=== PATIENT | female | born 1960 | race Caucasian/White ===

== ENCOUNTER 2018-11-27 13:13 | Day surgery (SDC) | payer OTHER ==
[~2018-11-27] VITALS: Ht 162.6 cm; Wt 82.5 kg
[~2018-11-27 13:13] MED LIST: AMLO5; ASPI81CH; Evening Primro500 M1 PO; FLAX SEED OIL1000 MG PO; Ginkgo Biloba120 MG PO; LEVSOD125; LEVSOD125 PO; LISI5; LISI5 PO; LO-DOSE ASPIRIN81 MG PO; Norvasc2.5 MG PO
== END 2018-11-27 16:00 | disposition home or self-care (01) ==
LOC: ORSCSDS 13:13
PROVIDERS: Internal Medicine Gastroenterology
PROC: 0DJD8ZZ Inspection of Lower Intestinal Tract, Via Natural or Artificial Opening Endoscopic (ICD-10-PCS; principal; 2018-11-27 15:15)
DX: Z12.11 Encounter for screening for malignant neoplasm of colon (principal); K64.8 Other hemorrhoids; K57.30 Diverticulosis of large intestine without perforation or abscess without bleeding; I10 Essential (primary) hypertension; E03.9 Hypothyroidism, unspecified; Z79.82 Long term (current) use of aspirin; Z79.899 Other long term (current) drug therapy
CPT/HCPCS: J2704; J7120

== ENCOUNTER 2019-09-09 11:06 | Day surgery (SDC) | payer OTHER ==
[~2019-09-09] VITALS: Ht 162.6 cm; Wt 85.0 kg
--- NOTE | 2019-09-09 15:50 | NUR ---
ASSUMED CARE OF PT. PT IS ALERT AND ORIENTED, PLEASENT AND COOPERATIVE; DENIES CHEST PAIN/PRESSURE POST PROCEDURE. HR 60'S, B/P 132/75, SPO2 97% RA. R RADIAL SITE NO SWELLING/HEMATOMA, TR BAND IN PLACE.
--- NOTE | 2019-09-09 16:39 | NUR ---
PT AMB TO THE BATHROOM, GAIT STEADY; SITE UNCHANGED WITH ACTIVITY.
--- NOTE | 2019-09-09 17:15 | NUR ---
PT DRESSED SELF WITHOUT ANY ISSUE, SITE UNCHANGED. TR BAND REMOVED, CLOTH DOT AND WRIST IMMOBILIZER PLACED; IV REMOVED-CANNULA INTACT. PT AND RECEIVED DISCHARGE INSTRUCTIONS, SITE MANAGEMENT, MED LIST AND AFTER CARE INSTRUCTIONS; VERBALIZED GOOD UNDERSTANDING. PT LEFT FACILITY WITH VIA W/C, CONDITION STABLE.
== END 2019-09-09 17:15 | disposition home or self-care (01) ==
LOC: MHTC 11:06
DX: R07.9 Chest pain, unspecified (principal); R94.39 Abnormal result of other cardiovascular function study; I10 Essential (primary) hypertension; Z79.82 Long term (current) use of aspirin; Z79.899 Other long term (current) drug therapy
CPT/HCPCS: 76937; 93454; 99152; 99153; C1769; C1894; J1644; J2250; J3010; J7030; Q9967

== ENCOUNTER → 2021-07-14 | Outpatient (CLI) | payer OTHER | END | disposition home or self-care (01) | LOC: LAB SHORT 18:51 | DX: N39.0 Urinary tract infection, site not specified (principal) | CPT/HCPCS: 87077; 87086; 87186 ==

== ENCOUNTER → 2021-08-10 | Outpatient (CLI) | payer OTHER | END | disposition home or self-care (01) | LOC: LAB SHORT 12:00 → LAB 12:00 | DX: R31.9 Hematuria, unspecified (principal) | CPT/HCPCS: 85060 ==

== ENCOUNTER → 2024-02-16 | Outpatient (CLI) | payer OTHER ==
[2024-02-16 16:09] LABS: Source, Urine Clean Catch
[2024-02-16 16:46] LABS: Appearance, Urine Clear (Clear); Bacteria Not Seen /hpf; Bilirubin, Urine Neg (Neg); Blood, Urine 1+ (Neg); Color, Urine Yellow (P-Yellow); Glucose Qualitative, Urine Neg (Normal); Ketones, Urine Neg (Neg); Leukocyte Esterase, Urine Neg (Neg); Nitrite, Urine Neg (Neg); Protein, Urine Neg (Neg); Red Blood Cells, Urine 0-2 /hpf (0-2); Squamous Epithelial Cells Few /hpf (Few); Urobilinogen, Urine NORM (Normal); White Blood Cells, Urine 0-2 /hpf (0-5)
== END ==
LOC: LAB SHORT 15:50 → LAB 15:50
PROVIDERS: Hospitalist
DX: R39.9 Unspecified symptoms and signs involving the genitourinary system (principal); M54.9 Dorsalgia, unspecified
CPT/HCPCS: 81001